=== PATIENT | female | born 1965 | race Caucasian/White ===

== ENCOUNTER 2021-03-06 19:51 | Observation (INO) ==
[2021-03-06] MEDS ORDERED: Ondansetron 4 MG/2 ML VIAL IVP ONE (21:39)
[2021-03-06] MEDS ORDERED: *HR* FentaNYL (PF) 100 MCG/2 ML VIAL IVP ONE ×2 (21:40→23:09)
[2021-03-06 22:25] LABS: Basophils # 0.1 K/mcL (0.0-0.2); Basophils % 0.8 %; Eosinophils # 0.2 K/mcL (0.0-0.6); Eosinophils % 2.6 %; Hematocrit 39.2 % (35.3-44.9); Hemoglobin 12.8 g/dL (11.5-15.4); Immature Granulocytes % 0.4 % (0-4); Lymphocytes # 1.6 K/mcL (0.6-4.6); Lymphocytes % 22.3 %; Mean Corpuscular HGB Conc 32.7 g/dL (31.6-35.5); Mean Corpuscular Hemoglobin 31.1 pg (28.0-33.3); Mean Corpuscular Volume 95.1 fL (83.0-100.0); Mean Platelet Volume 9.7 fL (9.4-12.4); Monocytes # 0.8 K/mcL (0.0-1.3); Monocytes % 11.1 %; Neutrophils # 4.5 K/mcL (1.6-8.9); Platelet Count 264 K/mcL (140-400); Red Blood Count 4.12 M/mcL (3.82-4.97); Red Cell Distribution Width 12.1 % (11.5-14.5); Segmented Neutrophils % 62.8 %; White Blood Count 7.2 K/mcL (4.3-11.1)
[2021-03-06 22:26] LABS: Bilirubin,Urine Negative (Negative); Blood,Urine Negative (Negative); Clarity,Urine Clear (Clear); Color,Urine Yellow (Yellow); Glucose,Urine (UA) Normal (Normal); Ketones,Urine Negative (Negative); Leukocyte Esterase,Urine Negative (Negative); Nitrite,Urine Negative (Negative); PH,Urine 6.5 pH Units (5.0-8.0); Protein,Urine Negative (Neg-Trace); Specific Gravity,Urine 1.012 (1.010-1.025); Urobilinogen,Urine Normal (Normal)
[2021-03-06 22:37] LABS: Alanine Aminotransferase 13 Units/L (7-52); Albumin 4.3 g/dL (3.5-5.7); Albumin/Globulin Ratio 1.7 (1.1-2.2); Alkaline Phosphatase 71 Units/L (34-104); Amylase 52 Units/L (29-103); Aspartate Amino Transferase 14 Units/L (13-39); BUN/Creatinine Ratio 14 (6-26); Bilirubin,Direct 0.1 mg/dL (0.0-0.2); Bilirubin,Indirect 0.3 mg/dL (0.0-1.0); Bilirubin,Total 0.4 mg/dL (0.3-1.0); Blood Urea Nitrogen 14 mg/dL (6-20); Calcium 9.6 mg/dL (8.6-10.3); Carbon Dioxide 24 mEq/L (23-29); Chloride 104 mEq/L (98-107); Globulin 2.6 g/dL (2.4-3.5); Glucose 94 mg/dL (70-105); Lipase 40 Units/L (11-82); Osmolality,Calculated 282 (280-300); Potassium 4.1 mEq/L (3.5-5.1); Sodium 136 mEq/L (136-145); Total Protein 6.9 g/dL (6.4-8.9); eGFR For African Americans > 60 (> 60); eGFR For Non-African Americans 59 (> 60)
[2021-03-07] MEDS ORDERED: *HR* FentaNYL (PF) 100 MCG/2 ML VIAL IVP ONE (00:40)
[2021-03-07] MEDS ORDERED: *HR* HYDROmorphone (PF) 1 MG/ML SYRINGE IVP ONE ×2 (01:20→01:43)
[2021-03-07] MEDS ORDERED: Naloxone 0.4 MG/ML INJ IVP PRN ×2 (01:35→14:05)
[2021-03-07] MEDS ORDERED: Ondansetron 4 MG/2 ML VIAL IVP PRN (01:35)
[2021-03-07] MEDS ORDERED: Acetaminophen 325 MG TABLET PO PRN ×2 (01:35→14:05)
[2021-03-07] MEDS ORDERED: Melatonin 3 MG TABLET PO PRN ×2 (01:35→14:05)
[2021-03-07] MEDS ORDERED: 0.9 % Sodium Chloride 1,000 ML IVC SCH (01:45)
[2021-03-07 04:52] LABS: Prothrombin Time 10.7 Seconds (9.4-12.1)
[2021-03-07] MEDS ORDERED: *HR* HYDROmorphone (PF) 1 MG/ML SYRINGE IVP PRN (07:53)
[2021-03-07] MEDS ORDERED: Isovue-370 500 ML BOTTLE IVP ONE (09:25)
[2021-03-07] MEDS ORDERED: CefOXitin 1,000 MG VIAL ONE (10:39)
[2021-03-07] MEDS ORDERED: Isovue-300 50ML VIAL ONE (10:43)
[2021-03-07] MEDS ORDERED: *HR* HYDROmorphone PF 0.5 MG/0.5 ML SYRINGE IVP PRN ×2 (11:16→14:05)
[2021-03-07] MEDS ORDERED: Lidocaine HCL 4 ML Topical Solution (Laryng-O-Jet Kit Sterile Pak) TP ONE (11:32)
[2021-03-07] MEDS ORDERED: Lidocaine -MPF 2% 5 ML VIAL ONE (11:32)
[2021-03-07] MEDS ORDERED: Ketorolac 30 MG/ML VIAL ONE (11:32)
[2021-03-07] MEDS ORDERED: *HR* FentaNYL (PF) 100 MCG/2 ML VIAL ONE (11:32)
[2021-03-07] MEDS ORDERED: Ondansetron 4 MG/2 ML VIAL ONE (11:32)
[2021-03-07] MEDS ORDERED: *HR* Succinylcholine 200 MG/10 ML VIAL IVP ONE (11:32)
[2021-03-07] MEDS ORDERED: *HR* Rocuronium Bromide 50 MG/5 ML VIAL ONE (11:32)
[2021-03-07] MEDS ORDERED: *HR* Propofol 200 MG/20 ML VIAL IVP ONE (11:33)
[2021-03-07] MEDS ORDERED: *HR* Midazolam HCl 2 MG/2 ML VIAL ONE (11:33)
[2021-03-07] MEDS ORDERED: CefOXitin 2,000 MG VIAL ONE (12:00)
[2021-03-07] MEDS ORDERED: Sugammadex Sodium 200 MG/2 ML VIAL IV ONE (12:46)
[2021-03-07] MEDS ORDERED: Ringers Solution, Lactated 1,000 ML ONE (13:28)
[2021-03-07] MEDS: 0.9 % Sodium Chloride 1,000 ML IVC SCH ×2 (16:03→22:19)
[2021-03-07] MEDS: *HR* HYDROmorphone (PF) 1 MG/ML SYRINGE IVP PRN ×3 (16:03→22:28)
[2021-03-07] MEDS: Ondansetron 4 MG/2 ML VIAL IVP PRN (19:02)
[2021-03-07] MEDS ORDERED: *HR* LORazepam 2 MG/ML VIAL IVP ONE (22:48)
[2021-03-07] MEDS ORDERED: Ibuprofen 400 MG TABLET PO PRN (22:51)
[2021-03-07] MEDS: FLUoxetine 20 MG CAPSULE PO SCH (23:49)
[2021-03-07] MEDS: Gabapentin 400 MG CAPSULE PO SCH (23:49)
[2021-03-08] MEDS ORDERED: *HR* Promethazine 25 MG/ML VIAL IM ONE (00:08)
[2021-03-08] MEDS: Ondansetron 4 MG/2 ML VIAL IVP PRN ×3 (03:10→19:56)
[2021-03-08] MEDS: *HR* HYDROmorphone (PF) 1 MG/ML SYRINGE IVP PRN ×4 (06:41→19:56)
[2021-03-08] MEDS: Gabapentin 400 MG CAPSULE PO SCH ×3 (10:17→19:55)
[2021-03-08] MEDS: FLUoxetine 20 MG CAPSULE PO SCH ×2 (10:17→19:56)
[2021-03-08] MEDS: lamoTRIgine 100 MG TABLET PO SCH ×2 (10:17→19:55)
[2021-03-08 10:23] LABS: Basophils % 0.2 %; Eosinophils % 0.2 %; Hematocrit 36.1 % (35.3-44.9); Hemoglobin 11.6 g/dL (11.5-15.4); Immature Granulocytes % 0.5 % (0-4); Lymphocytes # 1.7 K/mcL (0.6-4.6); Mean Corpuscular HGB Conc 32.1 g/dL (31.6-35.5); Mean Corpuscular Hemoglobin 30.9 pg (28.0-33.3); Mean Corpuscular Volume 96.3 fL (83.0-100.0); Mean Platelet Volume 9.9 fL (9.4-12.4); Monocytes % 11.4 %; Platelet Count 260 K/mcL (140-400); Red Blood Count 3.75 M/mcL (3.82-4.97); Red Cell Distribution Width 11.9 % (11.5-14.5); Segmented Neutrophils % 68.7 %; White Blood Count 8.7 K/mcL (4.3-11.1)
[2021-03-08 10:37] LABS: Alanine Aminotransferase 31 Units/L (7-52); Albumin 4.1 g/dL (3.5-5.7); Albumin/Globulin Ratio 1.9 (1.1-2.2); Alkaline Phosphatase 67 Units/L (34-104); Aspartate Amino Transferase 32 Units/L (13-39); BUN/Creatinine Ratio 10 (6-26); Bilirubin,Direct 0.1 mg/dL (0.0-0.2); Bilirubin,Indirect 0.4 mg/dL (0.0-1.0); Bilirubin,Total 0.5 mg/dL (0.3-1.0); Blood Urea Nitrogen 11 mg/dL (6-20); Calcium 9.3 mg/dL (8.6-10.3); Carbon Dioxide 28 mEq/L (23-29); Chloride 102 mEq/L (98-107); Globulin 2.2 g/dL (2.4-3.5); Glucose 89 mg/dL (70-105); Osmolality,Calculated 279 (280-300); Potassium 4.3 mEq/L (3.5-5.1); Sodium 135 mEq/L (136-145); Total Protein 6.3 g/dL (6.4-8.9); eGFR For African Americans > 60 (> 60); eGFR For Non-African Americans 53 (> 60)
[2021-03-09] MEDS: *HR* HYDROmorphone (PF) 1 MG/ML SYRINGE IVP PRN ×2 (01:52→04:33)
[2021-03-09] MEDS: Ondansetron 4 MG/2 ML VIAL IVP PRN (04:32)
[2021-03-09 06:55] VITALS: BP 131/81; PULSE 84; TEMP 99.2; O2SAT 92
[2021-03-09] MEDS: lamoTRIgine 100 MG TABLET PO SCH (10:02)
[2021-03-09] MEDS: FLUoxetine 20 MG CAPSULE PO SCH (10:03)
[2021-03-09] MEDS: Gabapentin 400 MG CAPSULE PO SCH (10:03)
== END 2021-03-09 13:41 | disposition home or self-care (01) ==
LOC: EMEROOARM 19:51 → 3BNU 19:51 → SUATTDRO 03-07 01:23 → 3BNU 03-07 02:13
PROVIDERS: ADMIT Internal Medicine; ATTEND Internal Medicine